=== PATIENT | female | born 1980 | race Caucasian/White ===

== ENCOUNTER → 2018-05-10 | Outpatient (CLI) | payer OTHER | LOC: FIMAGING 07:31 | PROVIDERS: ATTEND Obstetrics & Gynecology | DX: O09.522 Supervision of elderly multigravida, second trimester (principal); Z3A.22 22 weeks gestation of pregnancy ==

== ENCOUNTER 2018-09-07 03:22 | Inpatient (IN) | payer OTHER ==
[2018-09-07] MEDS ORDERED: IBUPROFEN 600 MG TAB PO PRN (03:40)
[2018-09-07] MEDS ORDERED: TERBUTALINE SULFATE 1 MG/ML VIAL IV PRN (03:40)
[2018-09-07] MEDS ORDERED: LIDOCAINE 1% 300 MG/30 ML SDV SC PRN (03:40)
[2018-09-07] MEDS ORDERED: MISOPROSTOL 200 MCG TAB PR PRN (03:40)
[2018-09-07] MEDS ORDERED: LR 1,000 ML IV PRN (03:40)
[2018-09-07] MEDS ORDERED: EPSOM SALT 454 GM TP PRN (03:40)
[2018-09-07] MEDS ORDERED: AMPICILLIN SODIUM 2 GM in NS 100 ML IV ONE (03:40)
[2018-09-07] MEDS ORDERED: OLIVE OIL 118 ML BTL MISC PRN (03:40)
[2018-09-07] MEDS ORDERED: OXYTOCIN/RINGERS LACTATE 1,000 ML IV PRN (03:40)
[2018-09-07 04:37] LABS: PLATELET COUNT 140 10^3/uL (150-400)
[2018-09-07] MEDS ORDERED: LIDOCAINE 1% 300 MG/30 ML SDV ONE (05:20)
[2018-09-07] MEDS ORDERED: AMMONIA AROMATIC 1 EACH AMP IH ONE (05:20)
[2018-09-07] MEDS ORDERED: OLIVE OIL 118 ML BTL ONE (05:20)
[2018-09-07] MEDS ORDERED: TERBUTALINE SULFATE 1 MG/ML VIAL ONE (05:20)
[2018-09-07] MEDS ORDERED: OXYTOCIN 10 UNIT/ML VIAL ONE (05:21)
[2018-09-07] MEDS ORDERED: MISOPROSTOL 200 MCG TAB ONE (05:21)
[2018-09-07] MEDS ORDERED: fentaNYL 100 MCG/2 ML INJ ONE (07:31)
[2018-09-07] MEDS ORDERED: AMPICILLIN SODIUM 1 GM in NS 100 ML IV SCH (08:00)
[2018-09-07] MEDS ORDERED: SIMETHICONE 80 MG TAB CHEW PO PRN (08:27)
[2018-09-07] MEDS ORDERED: HYDROCORTISONE 0.5% CREAM TP PRN (08:27)
[2018-09-07] MEDS ORDERED: oxyCODONE IR 5 MG TAB PO PRN (08:27)
--- NOTE | 2018-09-07 08:33 | PDGENHP ---
History and Physical History and Physical: CARE: [facility] HPI: Patient is a [id number] with IUP@ 39-5wks that presents to L&D with complaints of SROM @ midnight. She denies any regular contractions or VB. She reports +FM. She states she had a little trickle then another big gush around 2am. EDC: 09/09/18 which is based on Ultrasound at 8 weeks. Her is complicated by: AMA, +NIPT- monosomy X (FISH negative), hypothyroid, +GBS bacteruria, anemia, h/p PP anxiety/depression Review of Systems: Constitutional: Denies any fever, chills, or fatigue HEENT: denies any visual changes, difficulty swallowing, hearing loss Cardiovascular: Denies any chest pain, palpitations, leg swelling Respiratory: denies any cough, wheezing, or shortness of breathe GI: Denies any nausea, vomiting, diarrhea, constipation : denies any dysuria, urgency, frequency, vaginal bleeding Musculoskeletal: denies any muscle or bone pain Skin: denies any rashes Neuro: denies any headache, seizures, lightheadedness, dizziness, or loss of consciousness Psychiatric: denies any depression, anxiety, or SI/HI thoughts HISTORY: Previous OB history: 2016 (5#11) Past medical history: hypothyroid dx'd in , h/o PP anxiety/depression Past surgical history: oral surgery Medications: PNV, levothyroxine, iron Allergies (list reaction): NKDA LABS: Rh: B+ ABS: Neg Rubella: Immune HbsAg: NR HIV: NR VDRL: NR 1hr: 84 GC: Neg Chlamydia: Neg Pap: Normal GBS: + BMI: (prepreg) 20 PHYSICAL EXAM: Constitutional: WN, A&Ox3 HEENT: normocephalic atraumatic, supple Heart: RRR, no murmur Chest: CTA-B Abdomen: Soft, nontender, gravid SVE: /50/-2 (per RN) Extremities: no edema, negative homans sign Neuro: grossly normal Psych: normal affect assessment: Reassuring FHTs, [id number] +accels, no decels, moderate variability Contractions: toco irregular Assessment: * [id number] with IUP@ 39-5wks * SROM * GBS+ * Cat 1 FHR Tracing Plan: * admit to L&D * expectant management * IV abx for GBS +
--- NOTE | 2018-09-07 08:33 | OBPP ---
Progress Note Assessment/Plan: Assessment: 38 y/o s/p and retained placenta. I examined the placental pieces and feel the majority of tissue is present. I performed by own bedside ultrasound and can clearly see the demarcation of endometrial lining without tissue visualized. Uterine fundus is firm @ umbilicus and her bleeding is well controlled. Plan: I will not perform a bedside curettage now, because I do not feel there will be retained tissue and I feel that additional instrumentation could cause more damage to the uterine myometrium and add bleeding and infection risk. We will give her one dose of Ancef now and pitocin bolus. We will observe bleeding closely and give good PP bleeding precautions. I explained that occasionally in these situations, we need to perform a vaginal ultrasound several weeks post and occasionally a dilation and curettage. She understands and all questions were answered. 09/07/18 08:36 Subjective/ Course: 09/07/18 08:24 I was called in by Ning Bush CNM to assess placental delivery and PP bleeding. She had a retained placenta which required manual removal and it came out in pieces. Ning had performed a bedside ultrasound and felt she had removed the bulk of the tissue but wanted reassurance. Overall bleeding is now controlled and patient's vital signs are stable. Objective: 09/07/18 04:10 Patient ABO/Rh B POSITIVE 09/07/18 04:10 Uterine Position/Fundal Height: At Umbilicus Uterine Tone: Firm Physical Exam - Physical Exam General Appearance: alert, no apparent distress Neck: non-tender, full range of motion, supple Respiratory: chest non-tender, lungs clear, normal breath sounds Extremities: swelling (no), Benedicto's sign (neg)
--- NOTE | 2018-09-07 08:35 | OBDEL ---
Info Type: Vaginal Presentation at Delivery: Vertex L&D Analgesia/Anesthesia Type: None GBS+: Yes Antibiotic Used for + GBS: Ampicillin Intrapartum Medications: Discontinued Medications Generic Name Dose Route Start Last Admin Trade Name Celine PRN Reason Stop Dose Admin Ampicillin Sodium 2 gm/ Sodium 110 mls @ 220 mls/hr 09/07/18 03:40 09/07/18 04:01 Chloride IV 09/07/18 04:09 110 mls ONCE ONE Administration Protocol Ibuprofen 600 mg 09/07/18 03:40 09/07/18 08:31 Motrin PO 600 mg ONCE PRN Administration post , pain Indications for Delivery: Spontaneous Labor, SROM Vaginal Delivery - Delivery Provider Delivery Physician/CNM: Ning Bush - Labor and Delivery Onset of Contractions Date: 09/07/18 Onset of Contractions Time: 01:10 Onset of Contractions Type: Spontaneous Rupture of Membranes Date: 09/07/18 Rupture of Membranes Type: Spontaneous Amniotic Fluid Color: Clear Dilation Complete Date: 09/07/18 Placenta Delivery Date: 09/07/18 Laceration: Other (Specify) (labial) Repair: 4-0, Chromic Vaginal Sponge Count Correct: Yes Vaginal Needle Count Correct: Yes Vaginal Sweep Performed: Yes EBL: 450 Delivery Events: Retained Placenta (manual removal- BSUS done confirms endo stripe NL) Data EMPERATRIZ: 09/09/18 Gestational Age: 39 week(s) and 5 day(s) [place] Delivery Date: 09/07/18 Delivery Time: 06:57 Sex of : Female [place] Weight (gm): 3360 g Score (1 Min): 9 Score (5 Min): 9 ICD10 Worksheet Patient Problems: Problems Problem Status Onset GBS bacteriuria Acute (spontaneous vaginal delivery) Acute - ICD10 Problem Qualifiers (1) GBS bacteriuria (2) (spontaneous vaginal delivery)
[2018-09-07] MEDS ORDERED: ceFAZolin 2 GM/DEXTROSE 100 ML IV ONE (08:40)
[2018-09-07] MEDS: ACETAMINOPHEN 325 MG TAB PO SCH ×3 (08:49→21:50)
[2018-09-07] MEDS: DOCUSATE SODIUM 100 MG CAP PO PRN (14:24)
[2018-09-07] MEDS: IBUPROFEN 600 MG TAB PO SCH ×2 (14:24→20:27)
[2018-09-08] MEDS: ACETAMINOPHEN 325 MG TAB PO SCH ×3 (04:19→15:39)
[2018-09-08] MEDS: IBUPROFEN 600 MG TAB PO SCH ×3 (04:23→16:30)
[2018-09-08] MEDS: DOCUSATE SODIUM 100 MG CAP PO PRN (10:38)
--- NOTE | 2018-09-08 15:13 | OBPP ---
Progress Note Assessment/Plan: Assessment: Plan: 09/08/18 15:13 PPD #1 Anemia Establishing Plan: Advised starting iron one x daily along with vitamin. Recheck at 6 weeks pp Discharge home tomorrow Subjective/ Course: 09/07/18 08:24 I was called in by Ning Bush CNM to assess placental delivery and PP bleeding. She had a retained placenta which required manual removal and it came out in pieces. Ning had performed a bedside ultrasound and felt she had removed the bulk of the tissue but wanted reassurance. Overall bleeding is now controlled and patient's vital signs are stable. 09/08/18 15:09 Doing well overall. Baby nursing frequently. Latching better on one side than the other. Pain minimal and well controlled with ibuprofen. Bleeding minimal. Ambulating without difficulty. Would like to discharge home tomorrow 09/08/18 15:12 Objective: 09/08/18 04:40 Patient ABO/Rh B POSITIVE 09/07/18 04:10 Temp Pulse Resp BP Pulse Ox 37.2 C 83 17 101/60 96 09/08/18 12:00 09/08/18 12:00 09/08/18 12:00 09/08/18 12:00 09/08/18 12:00 Nipples intact bilaterally; breasts soft neg lisbeth's Uterine Position/Fundal Height: Umbilicus -1 Uterine Tone: Firm
[2018-09-08] MEDS ORDERED: fentaNYL 100 MCG/2 ML INJ IVP ONE (17:30)
[2018-09-09] MEDS: IBUPROFEN 600 MG TAB PO SCH ×2 (00:32→08:46)
[2018-09-09] MEDS: ACETAMINOPHEN 325 MG TAB PO SCH ×3 (01:36→13:21)
[2018-09-09] MEDS: DOCUSATE SODIUM 100 MG CAP PO PRN (08:46)
[2018-09-09] MEDS ORDERED: FERROUS SULFATE 325 MG TAB PO SCH (09:00)
--- NOTE | 2018-09-09 10:13 | OBGCSDC ---
General Delivery Information - General Info : 2 Para: 2 Abortions: 0 Type: Vaginal L&D Analgesia/Anesthesia Type: None Admission Date: 09/07/18 Labs: Patient ABO/Rh B POSITIVE 09/07/18 04:10 Hct 30.2 % (38.0-47.0) L 09/08/18 04:40 continue PO iron - Hospital Course : 09/07/18 08:24 I was called in by Ning Bush CNLuana to assess placental delivery and PP bleeding. She had a retained placenta which required manual removal and it came out in pieces. Ning had performed a bedside ultrasound and felt she had removed the bulk of the tissue but wanted reassurance. Overall bleeding is now controlled and patient's vital signs are stable. 09/08/18 15:09 Doing well overall. Baby nursing frequently. Latching better on one side than the other. Pain minimal and well controlled with ibuprofen. Bleeding minimal. Ambulating without difficulty. Would like to discharge home tomorrow 09/08/18 15:12 09/09/18 10:12 Breast feeding well. Baby is cluster feeding but mom feels like milk supply is increasing today. Minimal bleeding. Voiding well. Flatus, no BM. D/C home today. Vaginal - Delivery Provider Delivery Physician/CNM: Ning Bush - Diagnosis Labor: Spontaneous Rupture of Membranes Type: Spontaneous Amniotic Fluid Color: Clear Laceration: Other (Specify) (labial) Repair: 4-0, Chromic Delivery Events: Retained Placenta (manual removal- BSUS done confirms endo stripe NL) - Delivery EBL: 450 [place] Data EMPERATRIZ: 09/09/18 Gestational Age: 40 week(s) and 0 day(s) [place] Delivery Date: 09/07/18 Delivery Time: 06:57 Sex of Infant: Female [place] Weight (gm): 3360 g Score (1 Min): 9 Score (5 Min): 9 Discharge Information - Discharge Information Condition: Good Instruction/Follow Up: Two Weeks, Four Weeks, Six Weeks
[2018-09-09 10:52] VITALS: BP 103/67
== END 2018-09-09 12:30 | disposition home or self-care (01) | DRG 807 ==
LOC: FLD 03:22 → FOB 10:25
PROVIDERS: ADMIT Advanced Practice Midwife; ATTEND Advanced Practice Midwife
DX: O99.284 Endocrine, nutritional and metabolic diseases complicating childbirth (principal); Z37.0 Single live birth; Z3A.40 40 weeks gestation of pregnancy; E03.9 Hypothyroidism, unspecified; O99.824 Streptococcus B carrier state complicating childbirth; O70.0 First degree perineal laceration during delivery; O73.0 Retained placenta without hemorrhage
CPT/HCPCS: J0290; J0690; J2590; J3010; J3105